=== PATIENT | female | born 1950 | race American Indian/Alaskan Native ===

== ENCOUNTER 2017-09-28 16:36 | Emergency (ER) | payer BC, MEDICARE ==
[2017-09-29] MEDS ORDERED: DELTASONE PO ONE (00:44)
--- NOTE | 2017-09-29 00:49 | Emergency Department Report ---
ED Rash HPI - HPI Chief Complaint: Skin Rash Stated Complaint: INSECT BITE Time Seen by Provider: 09/29/17 00:09 Duration: 2 Days Location: Neck, Back Rash Symptoms: Yes Itching, No Facial Swelling, No Tongue/Oral Swelling, No Breathing Difficulties, No Choking Sensation, No Wheezing/Dyspnea, No Peeling, No Blistering, No Fever, No Lightheaded, No Malaise, No Myalgias Severity: mild Other History: 67-year-old female states on Tuesday she woke noticed some red gallardo on the side of the neck and back. Patient states she feels that her but could not see what it was. She states since then she has noticed some redness to the area, itching and burning. Patient states she is has used cream did not help. She denies fevers/chills nausea vomiting or any other problems ED Review of Systems ROS: Stated complaint: INSECT BITE Other details as noted in HPI Constitutional: denies: chills, fever Eyes: denies: eye pain, eye discharge, vision change ENT: denies: ear pain, throat pain Respiratory: denies: cough, shortness of breath, wheezing Cardiovascular: denies: chest pain, palpitations Endocrine: no symptoms reported Gastrointestinal: denies: abdominal pain, nausea, diarrhea Genitourinary: denies: urgency, dysuria, discharge Musculoskeletal: denies: back pain, joint swelling, arthralgia Skin: denies: rash, lesions Neurological: denies: headache, weakness, paresthesias Psychiatric: denies: anxiety, depression Hematological/Lymphatic: denies: easy bleeding, easy bruising ED Past Medical Hx - Past Medical History Hx Hypertension: Yes - Surgical History Past Surgical History?: No - Social History Smoking Status: Never Smoker Substance Use Type: None - Medications Home Medications: Home Medications Medication Instructions Recorded Confirmed Last Taken Type Amlodipine Besylate [Norvasc] 2.5 mg PO DAILY #30 tab 11/16/15 Unknown Rx Prednisone [predniSONE 5 mg (6-Day 5 mg PO .TAPER #1 tab.ds.pk 11/16/15 Unknown Rx Pack, 21 Tabs)] Calamine/Zinc Oxide [Calamine 1 applic TP BID #1 lotion 09/29/17 Unknown Rx Lotion] hydrOXYzine HCL [Atarax] 10 mg PO QHS #20 tablet 09/29/17 Unknown Rx Rash Exam - Exam General: Vital signs noted. No distress. Alert and acting appropriately. HEENT: No Periorbital Edema, No Conjuctival Injection, No Chemosis, No Perioral Edema, No Tongue Edema, No Uvular Edema, No Compromised Airway, No Drooling Lungs: Yes Good Air Exchange (Normal Breath Sounds), No Wheezes, No Ronchi, No Stridor, No Cough, No Labored Respirations, No Retractions, No Use of Accessory Muscles, No Other Abnormal Lung Sounds Heart: Yes Regular, No Murmur Skin: Yes Urticarial Rash, Yes Maculopapular Rash, Yes Tenderness, Yes Erythema , No Morbilliform rash, No Bulla(e), No Excoriations, No Weeping, No Edema, No Encrustations, No Other Other: Positive: Abdomen Normal, Neurologic Normal, Musculoskeletal Normal ED Course Vital Signs 09/28/17 16:50 Temperature 97.8 F Pulse Rate 70 Respiratory 16 Rate Blood Pressure 149/76 O2 Sat by Pulse 96 Oximetry ED Medical Decision Making - Medical Decision Making 67-year-old female presents with insect bites ED course: Patient received prednisone in the ED. Patient is driving so cannot have Benadryl for itching. I discussed the patient was sent home on topical cream and antihistamine Discussed to follow up with primary care physician. Discussed rash resolves on own. Discussed sterilized all bed sheets and clothes in the/bedroom Discussed if worsening of symptoms and the onset to return to ED immediately Vital signs are normal patient is in no acute or respiratory distress. Critical care attestation.: If time is entered above; I have spent that time in minutes in the direct care of this critically ill patient, excluding procedure time. ED Disposition Clinical Impression: Insect bite Qualifiers: Encounter type: initial encounter Qualified Code(s): W57.XXXA - Bitten or stung by nonvenomous insect and other nonvenomous arthropods, initial encounter Disposition: -01 TO HOME OR SELFCARE Is pt being admited?: No Does the pt Need Aspirin: No Condition: Stable Instructions: Insect Bite or Sting (ED) Additional Instructions: Make sure to follow up with the primary care physician as discussed. Take your medications as you've been prescribed. If you have any worsening symptoms or develop new symptoms please return to ED immediately. Prescriptions: hydrOXYzine HCL [Atarax] 10 mg PO QHS #20 tablet Calamine/Zinc Oxide [Calamine Lotion] 1 applic TP BID #1 lotion Referrals: PRIMARY CARE, [Primary Care Provider] - 3-5 Days [facility] [Outside] - 3-5 Days [facility] [Outside] - 3-5 Days Forms: Accompanied Note, Work/School Release Form(ED) Time of Disposition: 00:52
[2017-09-29 01:34] VITALS: BP 133/71
== END 2017-09-29 01:33 | disposition home or self-care (01) ==
LOC: ED 16:36
DX: S10.96XA Insect bite of unspecified part of neck, initial encounter (principal); S20.469A Insect bite (nonvenomous) of unspecified back wall of thorax, initial encounter; I10 Essential (primary) hypertension; Z88.8 Allergy status to other drugs, medicaments and biological substances; W57.XXXA Bitten or stung by nonvenomous insect and other nonvenomous arthropods, initial encounter; Y93.89 Activity, other specified; Y99.8 Other external cause status; Y92.89 Other specified places as the place of occurrence of the external cause
CPT/HCPCS: 99282; J7512